=== PATIENT | female | born 1990 | race Caucasian/White ===

== ENCOUNTER 2022-01-15 12:40 | Emergency (ER) | payer MEDICAID ==
[~2022-01-15] VITALS: Ht 160 cm; Wt 75.7 kg
[2022-01-15 12:45] VITALS: BP 117/67
--- NOTE | 2022-01-15 12:51 | NUR ---
PT AMB TO BED 6.
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
[2022-01-15] MEDS ORDERED: KETOROLAC 60 MG/2 ML VIAL IM ONE (13:20)
[2022-01-15] MEDS ORDERED: IBUP-2213 PO (13:38)
[2022-01-15 13:45] VITALS: BP 111/62
== END 2022-01-15 13:45 | disposition home or self-care (01) ==
LOC: MED 12:40
DX: S13.4XXA Sprain of ligaments of cervical spine, initial encounter (principal); M54.50 Low back pain, unspecified; Z79.1 Long term (current) use of non-steroidal anti-inflammatories (NSAID); V89.2XXA Person injured in unspecified motor-vehicle accident, traffic, initial encounter; Y93.89 Activity, other specified; Y92.410 Unspecified street and highway as the place of occurrence of the external cause; Y99.8 Other external cause status
CPT/HCPCS: 96372; 99283; J1885

== ENCOUNTER 2023-10-30 15:53 | Emergency (ER) | payer MEDICAID, OTHER ==
[~2023-10-30] VITALS: Ht 157.5 cm; Wt 88.0 kg
[~2023-10-30 15:53] MED LIST: IBUP-2213 PO
[2023-10-30 16:13] VITALS: BP 104/78; PULSE 99; RESP 18; TEMP 98.7; O2SAT 98
[2023-10-30] MEDS ORDERED: IBUP-2213 PO (17:35)
[2023-10-30] MEDS ORDERED: ROB PO (17:35)
[2023-10-30 19:10] LABS: FLU A ANTIGEN negative (NEGATIVE); FLU B ANTIGEN NEGATIVE (NEGATIVE)
== END 2023-10-30 17:38 | disposition home or self-care (01) ==
LOC: MED 15:53
DX: J06.9 Acute upper respiratory infection, unspecified (principal); Z20.822 Contact with and (suspected) exposure to COVID-19; F17.200 Nicotine dependence, unspecified, uncomplicated; Z79.899 Other long term (current) drug therapy
CPT/HCPCS: 99283

== ENCOUNTER 2023-11-01 09:31 | Emergency (ER) | payer OTHER ==
[~2023-11-01] VITALS: Ht 157.5 cm; Wt 88.0 kg
[~2023-11-01 09:31] MED LIST changes: +ROB PO
[2023-11-01 09:40] VITALS: BP 125/83; PULSE 115; RESP 16; TEMP 98; O2SAT 96
[2023-11-01] MEDS ORDERED: BENZ200C4 PO (10:49)
[2023-11-01] MEDS ORDERED: ALBU0.0912 IH (10:49)
[2023-11-01] MEDS: KETOROLAC 30 MG/ML VIAL IM ONE (11:09)
[2023-11-01 11:14] VITALS: BP 125/83; PULSE 115; RESP 16; TEMP 98; O2SAT 96
== END 2023-11-01 11:08 | disposition home or self-care (01) ==
LOC: MED 09:31
DX: J98.8 Other specified respiratory disorders (principal); B97.89 Other viral agents as the cause of diseases classified elsewhere; Z79.899 Other long term (current) drug therapy
CPT/HCPCS: 71045; 81025; 93005; 96372; 99283; J1885